=== PATIENT | female | born 1995 | race Caucasian/White ===

== ENCOUNTER 2016-11-07 13:34 | Emergency (ER) | payer OTHER ==
[2016-11-07 13:41] VITALS: BP 128/81; PULSE 81; RESP 18; TEMP 97.2; O2SAT 100
--- NOTE | 2016-11-07 13:58 | EDPHY ---
H & P Stated Complaint: fell skiing/no loc/l wrist inj/lip lac Time Seen by Provider: 11/07/16 13:50 HPI/ROS: CHIEF COMPLAINT: Left wrist pain, possible lip laceration HISTORY OF PRESENT ILLNESS: 21-year-old [id number] female with up-to- date tetanus, arrives via private vehicle from [facility] after she was skiing, hit a rock and fell forward. She was helmeted. Did not impact her face but believes she may have bit her lip. No facial injury. No diplopia. No amnesia. No loss of consciousness. No nausea or vomiting. She also braced her fall with her outstretched left hand falling on outstretched left hand. Complaining of left wrist pain. Splinted by ski patrol officer. No paresthesia. No proximal distal pain or injury. Denies: Midline C-spine pain, peripheral paresthesia, weakness, numbness, chest pain, back pain, abdominal pain, dyspnea, straddle injury PAST MEDICAL/SURGICAL HISTORY: no anticoagulant use, no relevant medical/ surgical history SOCIAL HISTORY: denies alcohol use at time of incident PHYSICAL EXAM 1) GENERAL: Well-developed, well-nourished, alert and oriented. Appears to be in no acute distress. Answering questions appropriately. 2) HEAD: Normocephalic, atraumatic 3) HEENT: Pupils equal, round, reactive to light bilaterally. Negative Horners. Nasopharynx, oropharynx, clear. No deformity or angulation of nose. No septal hematoma. No rhinorrhea. No oral trauma. Ears bilaterally with normal tympanic membranes. No hemotympanum. Abrasion to upper lip, soft tissue swelling. Dentition intact. No laceration to skin or buccal mucosa. No intraoral lesions No fluid or blood in the external auditory canal. No raccoon eyes. No Ho sign. Teeth are normally aligned with no gross malocclusion, TMJ bilaterally nontender, facial bones nontender including the zygomatic arch, maxilla mandible. 4) NECK: No cervical collar is on. Posterior cervical spine is nontender, no stepoff, no effusion. Full range of motion which does not elicit any midline cervical spine pain, no posterior midline tenderness, no step-off. 5) LUNGS: Clear to auscultation bilaterally, no wheezes, no rhonchi, no retractions. No obvious signs of trauma. No chest wall pain. No flaring, no grunting. Moving symmetrically. No crepitus. 6) HEART: Regular rate and rhythm, 7) ABDOMEN: No guarding, no rebound, no focal tenderness, no peritoneal signs, no signs of trauma, no ecchymosis 8) MUSCULOSKELETAL: Left upper extremity: Pre-hospital splint in place removed revealing tenderness to palpation distal radius and ulna. No deformity. Intact skin. No tenting. Soft compartments Radial ulnar median nerve function intact. Proximally nontender. Otherwise, Moving all extremities, no focal areas of tenderness, no obvious trauma. 9) BACK: No midline vertebral tenderness, no fluctuance, no step-off, no obvious trauma, no visual or palpable abnormality. 10) SKIN: No laceration. No abrasion DIFFERENTIAL DIAGNOSIS: in no particular order including but not limited to fracture, sprain, compartment syndrome - Personal History LMP (Females 10-55): IUD In Place Current Tetanus/Diphtheria Vaccine: Yes - Medical/Surgical History Hx Asthma: No Hx Chronic Respiratory Disease: No Hx Diabetes: No Hx Cardiac Disease: No Hx Renal Disease: No Hx Cirrhosis: No Hx Alcoholism: No Hx HIV/AIDS: No Hx Splenectomy or Spleen Trauma: No Other PMH: r wrist fx - Social History Smoking Status: Never smoked Constitutional: Initial Vital Signs Temperature (C) 36.2 C 11/07/16 13:38 Heart Rate 81 11/07/16 13:38 Respiratory Rate 18 11/07/16 13:38 Blood Pressure 128/81 H 11/07/16 13:38 O2 Sat (%) 100 11/07/16 13:38 O2 Delivery Mode Room Air Allergies/Adverse Reactions: No Known Allergies Allergy (Unverified 11/07/16 13:37) Home Medications: Medication Instructions Recorded MIRENA 11/07/16 Medical Decision Making Procedures: Procedure: Splint A Velcro volar splint was applied by ER pattern technician. After application of the splint I returned and re-examined the patient. The splint was adequately immobilizing the joint and distal to the splint the patient's circulation and sensation were intact. Patient shows no signs of compartment syndrome. Was given orthopedic precautions. ED Course/Re-evaluation: This patient was re-evaluated with serial examinations. She is neurovascularly intact, no evidence of compartment syndrome. Discussed her imaging studies. Discussed limitations of imaging. Discussed that occult fracture or non osseous injury not ruled out. Recommend orthopedic follow-up and given this referral information. Regarding her lip she has no laceration, superficial abrasion or she bit her lip which will be allowed to heal via secondary intention. Dentition intact with no evidence of facial trauma. She feels comfortable being discharged. Departure - Departure Disposition: Home, Routine, Self-Care Clinical Impression: Abrasion of lip, initial encounter Qualifiers: Encounter type: initial encounter Qualified Code(s): S00.511A - Abrasion of lip , initial encounter Skiing accident Qualifiers: Encounter type: initial encounter Qualified Code(s): V00.328A - Other snow-ski accident, initial encounter Left wrist sprain Qualifiers: Encounter type: initial encounter Qualified Code(s): S63.502A - Unspecified sprain of left wrist, initial encounter Condition: Good Instructions: Wrist Injury (ED), Abrasion (ED) Additional Instructions: Return to the ER immediately if you experience discoloration, have worsening pain, numbness, tingling, or any other symptoms that concern you. If you received x-rays in the emergency department today, be advised, that ligamentous , tendon, muscular, and other non-bony injury cannot be fully ruled out. [Try to keep your affected extremity elevated above the level of your chest, and keep cold packs on the affected area, for the next 48 hours.] Referrals: Rudy Barnes MD [Medical Doctor] - 2-3 days, call for appt. (Dr. Rudy Barnes is an orthopedic surgeon)
== END 2016-11-07 14:35 | disposition home or self-care (01) ==
DX: S63.502A Unspecified sprain of left wrist, initial encounter (principal); S00.511A Abrasion of lip, initial encounter; V00.321A Fall from snow-skis, initial encounter; Y92.89 Other specified places as the place of occurrence of the external cause; Y99.8 Other external cause status; Y93.23 Activity, snow (alpine) (downhill) skiing, snowboarding, sledding, tobogganing and snow tubing
CPT/HCPCS: L3908

== ENCOUNTER → 2017-03-31 | Outpatient (CLI) | payer OTHER | LOC: FIMAGING 15:36 | PROVIDERS: ATTEND Registered Nurse | DX: R10.30 Lower abdominal pain, unspecified (principal); R39.15 Urgency of urination; Z97.5 Presence of (intrauterine) contraceptive device; N83.201 Unspecified ovarian cyst, right side; N83.202 Unspecified ovarian cyst, left side ==